=== PATIENT | female | born 1995 | race Two or more races ===

== ENCOUNTER 2019-11-22 13:19 | Emergency (ER) | payer MEDICAID ==
[~2019-11-22] VITALS: Ht 154.9 cm; Wt 81.2 kg
[~2019-11-22 13:19] MED LIST: PREN-129
[2019-11-22 14:28] VITALS: BP 126/83
== END 2019-11-22 15:39 | disposition home or self-care (01) ==
LOC: ER 13:26
DX: O26.893 Other specified pregnancy related conditions, third trimester (principal); M79.642 Pain in left hand; Z3A.35 35 weeks gestation of pregnancy
CPT/HCPCS: 93971

== ENCOUNTER 2019-12-05 07:55 | Observation (INO) | payer MEDICAID ==
[~2019-12-05] VITALS: Ht 154.9 cm; Wt 82.6 kg
[2019-12-05 09:29] LABS: Urine Bacteria NONE SEEN /hpf (None Seen); Urine Blood Negative /uL (Negative); Urine Specific Gravity 1.013 (1.001-1.035); Urine WBC 6 /hpf (0 - 5)
[2019-12-05 09:45] LABS: Alcohol, Urine < 3.0 mg/dL (0-5); Amphetamine Screen, Urine NEGATIVE (NEGATIVE); Barbiturate Scree,Urine NEGATIVE (NEGATIVE); Benzodiazephine Screen, Urine NEGATIVE (NEGATIVE); Cannabinoid Screen, Urine NEGATIVE (NEGATIVE); Cocaine Screen, Urine NEGATIVE (NEGATIVE); Opiate Scree,Urine NEGATIVE (NEGATIVE); Phencyclidine Screen, Urine NEGATIVE (NEGATIVE)
[2019-12-05 09:51] LABS: Basophils # (auto) 0.1 uL; Eosinophils # (auto) 0.2 uL; Hemoglobin 10.3 g/dL (12.2-16.2); Monocytes # (auto) 0.6 uL
[2019-12-05 09:53] LABS: Basophils % (auto) 0.6 % (0.0-2.0); Hematocrit 32.3 % (36.0-46.0); Lymphocytes # (auto) 3.4 uL; Lymphocytes % (auto) 33.4 % (10.0-50.0); Mean Corpuscular Hemoglobin 24.2 pg (28.0-32.0); Mean Corpuscular Hgb Conc. 31.8 g/dL (32.0-36.0); Monocytes % (auto) 5.9 % (0.0-12.0); Neutrophils # (auto) 5.8 uL; Neutrophils % (auto) 58.1 % (37.0-80.0); Nucleated Red Blood Cells % 0.3 %; Platelet Count (auto) 284 10^3/uL (140-450); Red Blood Cells 4.25 10^6/uL (4.0-5.20); Red Cell Distribution Width 16.4 % (11.8-14.3)
[2019-12-05 10:12] LABS: Albumin 2.4 g/dL (3.4-5.0); Calcium 8.4 mg/dL (8.5-10.1); Potassium 3.8 mmol/L (3.5-5.1)
[2019-12-05 10:16] LABS: BUN/Creatinine Ratio 14.1; Bilirubin, Total 0.3 mg/dL (0.2-1.0); Total Protein 6.4 g/dL (6.4-8.2); Uric Acid 6.7 mg/dL (2.6-6.0)
[2019-12-05 10:22] LABS: INR 0.91 (0.9-1.15); Partial Thromboplastin Time 25.1 sec (23.64-32.05)
[2019-12-06] MEDS ORDERED: PREN-96 PO (07:53)
== END 2019-12-05 11:00 | disposition home or self-care (01) | DRG 566 ==
LOC: LDRP 07:55
PROVIDERS: ADMIT Obstetrics & Gynecology; ATTEND Obstetrics & Gynecology
DX: O36.8130 Decreased fetal movements, third trimester, not applicable or unspecified (principal); O62.9 Abnormality of forces of labor, unspecified; Z3A.37 37 weeks gestation of pregnancy
CPT/HCPCS: 36415; 59025; 76818; 80053; 80307; 81001; 81002; 84550; 85025; 85610; 85730; 86850; 86900; 86901; G0378

== ENCOUNTER 2019-12-06 07:25 | Inpatient (IN) | payer MEDICAID ==
[~2019-12-06] VITALS: Ht 154.9 cm; Wt 82.6 kg
[2019-12-06] MEDS ORDERED: PREN-96 PO (07:53)
[2019-12-06] MEDS ORDERED: LACT. RINGERS/OXYTOCIN 20UNITS 1,000 ML IV SCH ×2 (08:09→09:01)
[2019-12-06] MEDS ORDERED: LACTATED RINGER'S 1,000 ML IV SCH ×2 (08:09→12:00)
[2019-12-06] MEDS ORDERED: miSOPROStol 50 MCG per PRE-CUT 1/2 TAB PO PRN (08:15)
[2019-12-06] MEDS ORDERED: PHISODERM TOP SOLN 240ML BTL TOP PRN (08:15)
[2019-12-06] MEDS ORDERED: LIDOCAINE 2%HCL (LOCAL ANESTH.) INJ 20ML MDV ID PRN (08:15)
[2019-12-06] MEDS ORDERED: CARBOPROST TROMETHAMINE 250 MCG/1ML VIAL IM PRN (08:15)
[2019-12-06] MEDS ORDERED: TERBUTALINE SULFATE 1 MG/ML 1ML VIAL SC ONE (09:15)
[2019-12-06 09:16] LABS: Eosinophils # (auto) 0.2 uL; Hemoglobin 10.3 g/dL (12.2-16.2); Neutrophils % (auto) 63.6 % (37.0-80.0); Nucleated Red Blood Cells % 0.1 %
[2019-12-06 09:18] LABS: Basophils # (auto) 0 uL; Basophils % (auto) 0.5 % (0.0-2.0); Eosinophils % (auto) 1.5 % (0.0-7.0); Hematocrit 32.7 % (36.0-46.0); Lymphocytes # (auto) 2.8 uL; Lymphocytes % (auto) 27.6 % (10.0-50.0); Mean Corpuscular Hemoglobin 24.1 pg (28.0-32.0); Mean Corpuscular Hgb Conc. 31.7 g/dL (32.0-36.0); Monocytes # (auto) 0.7 uL; Monocytes % (auto) 6.8 % (0.0-12.0); Neutrophils # (auto) 6.3 uL; Platelet Count (auto) 293 10^3/uL (140-450); Red Cell Distribution Width 16.7 % (11.8-14.3)
[2019-12-06] MEDS: WITCH HAZEL-GLYCERIN PAD TOP PRN (09:18)
[2019-12-06] MEDS: DERMOPLAST 60ML BOTTLE TOP PRN (09:18)
[2019-12-06 09:26] LABS: Urine Bacteria FEW /hpf (None Seen); Urine Blood 2+ /uL (Negative); Urine Mucus FEW (None Seen); Urine WBC 41 /hpf (0 - 5)
[2019-12-06 09:38] LABS: INR 0.93 (0.9-1.15); Partial Thromboplastin Time 24.7 sec (23.64-32.05)
[2019-12-06] MEDS ORDERED: LACTATED RINGER'S 1,000 ML IV ONE ×3 (09:39→10:45)
[2019-12-06 09:42] LABS: Albumin 2.4 g/dL (3.4-5.0); Calcium 8.4 mg/dL (8.5-10.1); Potassium 3.6 mmol/L (3.5-5.1)
[2019-12-06 09:45] LABS: BUN/Creatinine Ratio 10.1; Bilirubin, Total 0.3 mg/dL (0.2-1.0); Total Protein 6.3 g/dL (6.4-8.2); Uric Acid 6.9 mg/dL (2.6-6.0)
[2019-12-06] MEDS ORDERED: ePHEDrine SULFATE 50 MG/ML AMP IV ONE ×2 (09:45→10:00)
[2019-12-06] MEDS ORDERED: fentaNYL 200mCg/100ml W ROPIVA 100 ML EPI SCH ×2 (09:45→10:00)
[2019-12-06] MEDS ORDERED: ACETAMINOPHEN 325 MG TAB PO PRN (12:30)
--- NOTE | 2019-12-06 13:30 | NUR ---
Ambulation: Patient OOB with standby assistance by RN. Patient ambulated to bathroom with steady gait. Patient able to void 200ml without difficulty. [facility]ic[facility] teaching provided with returned demonstration by patient. Clean gown provided and bed linen changed. Patient ambulated back to bed with steady gait and no distress noted.
[2019-12-06] MEDS: IBUPROFEN 600 MG TAB PO PRN ×2 (13:45→20:27)
--- NOTE | 2019-12-06 14:30 | NUR ---
Received report from Mayelin Maldonado who will assume care of patient
[2019-12-06 15:12] VITALS: BP 116/74
[2019-12-06 18:42] VITALS: BP 124/85
--- NOTE | 2019-12-06 18:45 | NUR ---
Report received from Phan Carreon RN. Assumed care of stable pt. at this time.
[2019-12-06 23:30] VITALS: BP 122/78
[2019-12-07] VITALS (14 sets, daily range): BP systolic 105–155; BP diastolic 55–102
[2019-12-07] MEDS: IBUPROFEN 600 MG TAB PO PRN ×3 (01:15→18:30)
--- NOTE | 2019-12-07 08:25 | NUR ---
Discharge: Discharge instructions given as ordered. Pt encouraged to follow up with [facility] as instructed. All questions and concerns addressed. Patient verbalized understanding. Medication reconciliation completed and copy given to patient. All required/requested vaccines given and copies of vaccinations given to patient. Patient encouraged to prepare to depart unit.
--- NOTE | 2019-12-07 09:02 | NUR ---
IV removed from right hand, catheter intact, pressure dressing applied
[2019-12-07] MEDS: WITCH HAZEL-GLYCERIN PAD TOP PRN (09:14)
[2019-12-07] MEDS: DERMOPLAST 60ML BOTTLE TOP PRN (09:14)
--- NOTE | 2019-12-07 09:44 | NUR ---
Dr Heller on unit, blood pressures reviewed, orders received to hold discharge, continue checking blood pressures q 15 minutes, PIH panel now
[2019-12-07 10:15] LABS: Urine Bacteria NONE SEEN /hpf (None Seen); Urine Blood 2+ /uL (Negative); Urine Specific Gravity 1.011 (1.001-1.035); Urine WBC 6 /hpf (0 - 5)
[2019-12-07 10:32] LABS: Eosinophils # (auto) 0.1 uL; Lymphocytes # (auto) 2.9 uL; Monocytes # (auto) 0.7 uL; Neutrophils # (auto) 7.4 uL; Nucleated Red Blood Cells % 0.1 %; White Blood Cell 11.2 10^3/uL (4.4-10.8)
[2019-12-07 10:33] LABS: Basophils # (auto) 0.1 uL; Basophils % (auto) 0.5 % (0.0-2.0); Eosinophils % (auto) 0.9 % (0.0-7.0); Hematocrit 27.8 % (36.0-46.0); Hemoglobin 8.9 g/dL (12.2-16.2); Mean Corpuscular Hemoglobin 24.3 pg (28.0-32.0); Mean Corpuscular Hgb Conc. 32.2 g/dL (32.0-36.0); Mean Corpuscular Volume 75.6 fL (80.0-100.0); Monocytes % (auto) 6.2 % (0.0-12.0); Neutrophils % (auto) 66.4 % (37.0-80.0); Platelet Count (auto) 260 10^3/uL (140-450); Red Blood Cells 3.68 10^6/uL (4.0-5.20); Red Cell Distribution Width 16.7 % (11.8-14.3)
[2019-12-07 10:48] LABS: Albumin 2.2 g/dL (3.4-5.0); Calcium 8.4 mg/dL (8.5-10.1); Potassium 4.1 mmol/L (3.5-5.1)
[2019-12-07 10:50] LABS: BUN/Creatinine Ratio 11.1; Bilirubin, Total 0.2 mg/dL (0.2-1.0); Total Protein 5.8 g/dL (6.4-8.2); Uric Acid 6.1 mg/dL (2.6-6.0)
[2019-12-07 10:59] LABS: INR 0.91 (0.9-1.15); Partial Thromboplastin Time 23.9 sec (23.64-32.05)
--- NOTE | 2019-12-07 11:28 | NUR ---
labs and vitals reviewed with Dr Heller, orders received for Pt to stay an additional night and Labetalol PO 200MG BID
[2019-12-07] MEDS ORDERED: LABETALOL HCL 200 MG TAB PO SCH (12:00)
--- NOTE | 2019-12-07 14:39 | NUR ---
blood pressures reviewed post Labetalol with Dr Heller, orders received
[2019-12-07] MEDS: LABETALOL HCL 200 MG TAB PO SCH (22:09)
[2019-12-08 02:44] VITALS: BP 127/83
[2019-12-08 07:26] VITALS: BP 126/82
--- NOTE | 2019-12-08 09:20 | NUR ---
Discharge: Discharge instructions given as ordered. Pt encouraged to follow up with [facility] as instructed. All questions and concerns addressed. Patient verbalized understanding. Medication reconciliation completed and copy given to patient. All required/requested vaccines given and copies of vaccinations given to patient. Patient encouraged to prepare to depart unit.
[2019-12-08] MEDS: LABETALOL HCL 200 MG TAB PO SCH (09:28)
--- NOTE | 2019-12-08 09:30 | NUR ---
Discharge: Patient taken to vehicle ambulatory with all personal belongings, accompanied by staff and family member. No distress noted at time of departure, no adverse changes in status since initial assessment.
[2019-12-10 10:49] LABS: RPR Non Reactive (Non Reactive)
== END 2019-12-08 09:30 | disposition home or self-care (01) | DRG 560 ==
LOC: UNDOADMOB 07:25 → LDRP 07:25 → OBSVTOIN 08:10 → LDRP 08:10 → INTOOBSV 08:10
PROVIDERS: ADMIT Obstetrics & Gynecology; ATTEND Obstetrics & Gynecology
PROC: 10E0XZZ Delivery of Products of Conception, External Approach (ICD-10-PCS; principal; 2019-12-06)
PROC: 3E0R3BZ Introduction of Anesthetic Agent into Spinal Canal, Percutaneous Approach (ICD-10-PCS; 2019-12-06)
PROC: 00HU33Z Insertion of Infusion Device into Spinal Canal, Percutaneous Approach (ICD-10-PCS; 2019-12-06)
DX: O80 Encounter for full-term uncomplicated delivery (principal); Z37.0 Single live birth; Z3A.37 37 weeks gestation of pregnancy
CPT/HCPCS: 36415; 51702; 59025; 59409; 62282; 76818; 80053; 80307; 81001; 81002; 84112; 84550; 85025; 85610; 85730; 86592; 86850; 86900; 86901; 94760; 96361; 96366; G0378; J2590